=== PATIENT | male | born 1965 | race Caucasian/White ===

== ENCOUNTER 2021-08-09 11:01 | Inpatient (IN) | payer OTHER ==
[2021-08-09 11:55] VITALS: BMI 19.4
[2021-08-09] MEDS ORDERED: ONDANSETRON *ODT* 4 MG TABLET SL PRN (12:51)
[2021-08-09] MEDS ORDERED: BISMUTH SUBSALICYLATE 262 MG/15 ML BTL PO PRN (12:51)
[2021-08-09] MEDS ORDERED: NICOTINE 10 MG CARTRIDGE (INHALER) IH PRN (12:51)
[2021-08-09] MEDS ORDERED: MAGNESIUM HYDROX 2400MG/30ML ORAL SUSPENSION 30 ML CUP PO PRN (12:51)
[2021-08-09] MEDS ORDERED: MAG HYDROX/AL HYDROX/SIMETH 30 ML UNIT-DOSE CUP PO PRN (12:51)
[2021-08-09] MEDS ORDERED: MENTHOL/PHENOL 1 EACH UD MM PRN (12:51)
[2021-08-09] MEDS ORDERED: ACETAMINOPHEN 325 MG TABLET (FP) PO PRN ×2 (12:51)
[2021-08-09] MEDS ORDERED: MAGNESIUM CITRATE 300 ML BOTTLE PO PRN (12:51)
[2021-08-09] MEDS ORDERED: ALBUTEROL SO4 HFA INHALER IH PRN (13:01)
[2021-08-09] MEDS: NICOTINE 14 MG/24 HOURS TOPICAL PATCH TD SCH (15:31)
[2021-08-09] MEDS: PRENATAL VITAMINS W/ FOLIC ACID TABLET (FP) PO SCH (15:31)
[2021-08-09] MEDS: hydrOXYzine PAMOATE 25 MG CAPSULE (FP) PO SCH ×3 (15:31→23:41)
[2021-08-09 15:43] LABS: HEMOGLOBIN 13.7 GM/dL (11.7-16.9); MCHC 33.5 g/dl (32.0-35.9); RBC 4.37 M/mm3 (4.00-5.60)
[2021-08-09 15:45] LABS: MCH 31.4 pg (25.7-33.7); MEAN CELL VOLUME 93.9 fl (80-96); MEAN PLT VOLUME 7.1 fl (7.5-11.1); PLATELET COUNT 275 10^3/uL (134-434); RDW 14.1 % (11.9-15.9)
[2021-08-09 17:41] LABS: ALBUMIN 3.7 g/dl (3.4-5.0); BILIRUBIN,TOTAL 0.2 mg/dL (0.2-1); BLOOD UREA NITROGEN 14.3 mg/dL (7-18); CALCIUM 8.9 mg/dL (8.5-10.1); CREATININE 0.9 mg/dL (0.55-1.3); TOT PROT 7.1 g/dl (6.4-8.2)
[2021-08-09] MEDS: IBUPROFEN 400 MG TABLET (FP) PO PRN (18:14)
[2021-08-09] MEDS: MELATONIN 5 MG TABLETS PO SCH (23:39)
[2021-08-09] MEDS: QUEtiapine FUMARATE 50 MG TABLET PO SCH (23:41)
[2021-08-09] MEDS: THIAMINE HCL 100 MG TABLET (FP) PO SCH (23:41)
[2021-08-10] MEDS: hydrOXYzine PAMOATE 25 MG CAPSULE (FP) PO SCH ×5 (06:30→22:15)
[2021-08-10] MEDS ORDERED: methaDONE HCL 10 MG TABLET PO SCH (09:00)
[2021-08-10] MEDS ORDERED: methaDONE HCL 40 MG DISPERSABLE TABLET ONE (09:34)
[2021-08-10] MEDS ORDERED: methaDONE HCL 10 MG TABLET ONE (09:34)
[2021-08-10] MEDS: PANTOPRAZOLE 20 MG TABLET PO SCH (09:46)
[2021-08-10] MEDS: NICOTINE 14 MG/24 HOURS TOPICAL PATCH TD SCH (09:46)
[2021-08-10] MEDS: PRENATAL VITAMINS W/ FOLIC ACID TABLET (FP) PO SCH (09:46)
[2021-08-10] MEDS: IBUPROFEN 400 MG TABLET (FP) PO PRN ×2 (09:51→18:02)
[2021-08-10] MEDS: diazePAM 5 MG TABLET PO SCH ×3 (10:31→22:15)
[2021-08-10] MEDS: QUEtiapine FUMARATE 50 MG TABLET PO SCH (22:15)
[2021-08-10] MEDS: THIAMINE HCL 100 MG TABLET (FP) PO SCH (22:15)
[2021-08-10] MEDS: MELATONIN 5 MG TABLETS PO SCH (22:16)
[2021-08-11] MEDS ORDERED: methaDONE HCL 40 MG DISPERSABLE TABLET ONE (04:10)
[2021-08-11] MEDS ORDERED: methaDONE HCL 10 MG TABLET ONE (04:10)
[2021-08-11] MEDS: diazePAM 5 MG TABLET PO SCH ×4 (05:06→22:27)
[2021-08-11] MEDS: hydrOXYzine PAMOATE 25 MG CAPSULE (FP) PO SCH ×5 (05:06→22:26)
[2021-08-11] MEDS: NICOTINE 14 MG/24 HOURS TOPICAL PATCH TD SCH (10:16)
[2021-08-11] MEDS: PANTOPRAZOLE 20 MG TABLET PO SCH (10:16)
[2021-08-11] MEDS: PRENATAL VITAMINS W/ FOLIC ACID TABLET (FP) PO SCH (10:16)
[2021-08-11] MEDS: IBUPROFEN 400 MG TABLET (FP) PO PRN ×2 (10:19→17:46)
[2021-08-11 11:05] LABS: HEMATOCRIT 42.8 % (35.4-49); HEMOGLOBIN 14.2 GM/dL (11.7-16.9); MCH 30.9 pg (25.7-33.7); MCHC 33.1 g/dl (32.0-35.9); MEAN CELL VOLUME 93.4 fl (80-96); MEAN PLT VOLUME 7.4 fl (7.5-11.1); PLATELET COUNT 291 10^3/uL (134-434); RBC 4.58 M/mm3 (4.00-5.60); RDW 14.1 % (11.9-15.9); WHITE BLOOD COUNT 9.8 K/mm3 (4.0-10.0)
[2021-08-11] MEDS: QUEtiapine FUMARATE 50 MG TABLET PO SCH (22:26)
[2021-08-11] MEDS: THIAMINE HCL 100 MG TABLET (FP) PO SCH (22:26)
[2021-08-11] MEDS: MELATONIN 5 MG TABLETS PO SCH (22:26)
[2021-08-12] MEDS ORDERED: methaDONE HCL 10 MG TABLET ONE (04:09)
[2021-08-12] MEDS ORDERED: methaDONE HCL 40 MG DISPERSABLE TABLET ONE (04:09)
[2021-08-12] MEDS: diazePAM 5 MG TABLET PO SCH ×3 (06:13→22:20)
[2021-08-12] MEDS: hydrOXYzine PAMOATE 25 MG CAPSULE (FP) PO SCH ×5 (06:13→22:20)
[2021-08-12] MEDS: METHOCARBAMOL 500 MG TABLET PO PRN (06:14)
[2021-08-12] MEDS: NICOTINE 14 MG/24 HOURS TOPICAL PATCH TD SCH (10:08)
[2021-08-12] MEDS: diazePAM 5 MG TABLET PO PRN ×2 (10:09→18:38)
[2021-08-12] MEDS: PANTOPRAZOLE 20 MG TABLET PO SCH (10:09)
[2021-08-12] MEDS: PRENATAL VITAMINS W/ FOLIC ACID TABLET (FP) PO SCH (10:09)
[2021-08-12] MEDS: IBUPROFEN 400 MG TABLET (FP) PO PRN ×2 (10:12→18:37)
[2021-08-12] MEDS: MELATONIN 5 MG TABLETS PO SCH (22:20)
[2021-08-12] MEDS: QUEtiapine FUMARATE 50 MG TABLET PO SCH (22:20)
[2021-08-12] MEDS: THIAMINE HCL 100 MG TABLET (FP) PO SCH (22:20)
[2021-08-13] MEDS ORDERED: methaDONE HCL 10 MG TABLET ONE (04:06)
[2021-08-13] MEDS ORDERED: methaDONE HCL 40 MG DISPERSABLE TABLET ONE (04:07)
[2021-08-13] MEDS: IBUPROFEN 400 MG TABLET (FP) PO PRN ×2 (06:19→18:02)
[2021-08-13] MEDS: diazePAM 5 MG TABLET PO SCH ×2 (06:19→18:05)
[2021-08-13] MEDS: hydrOXYzine PAMOATE 25 MG CAPSULE (FP) PO SCH ×5 (06:24→22:08)
[2021-08-13] MEDS: PANTOPRAZOLE 20 MG TABLET PO SCH (11:26)
[2021-08-13] MEDS: PRENATAL VITAMINS W/ FOLIC ACID TABLET (FP) PO SCH (11:26)
[2021-08-13] MEDS: NICOTINE 14 MG/24 HOURS TOPICAL PATCH TD SCH (11:26)
[2021-08-13] MEDS: QUEtiapine FUMARATE 50 MG TABLET PO SCH (22:08)
[2021-08-13] MEDS: THIAMINE HCL 100 MG TABLET (FP) PO SCH (22:08)
[2021-08-13] MEDS: MELATONIN 5 MG TABLETS PO SCH (22:10)
[2021-08-14] MEDS ORDERED: methaDONE HCL 10 MG TABLET ONE (04:17)
[2021-08-14] MEDS ORDERED: methaDONE HCL 40 MG DISPERSABLE TABLET ONE (04:18)
[2021-08-14] MEDS: METHOCARBAMOL 500 MG TABLET PO PRN (05:13)
[2021-08-14] MEDS: hydrOXYzine PAMOATE 25 MG CAPSULE (FP) PO SCH ×2 (05:13→11:27)
[2021-08-14] MEDS ORDERED: diazePAM 5 MG TABLET PO ONE (06:00)
[2021-08-14] MEDS: NICOTINE 14 MG/24 HOURS TOPICAL PATCH TD SCH (11:27)
[2021-08-14] MEDS: PANTOPRAZOLE 20 MG TABLET PO SCH (11:27)
[2021-08-14] MEDS: PRENATAL VITAMINS W/ FOLIC ACID TABLET (FP) PO SCH (11:27)
[2021-08-14 12:40] VITALS: BP 127/78; PULSE 89; TEMP 96.9
== END 2021-08-14 14:05 | disposition other institution (70) | DRG 773 ==
LOC: YASAS 11:01 → UNDOADMIN 13:34 → Y3N 13:34
PROVIDERS: ADMIT Allergy & Immunology; ATTEND Allergy & Immunology
PROC: HZ2ZZZZ Detoxification Services for Substance Abuse Treatment (ICD-10-PCS; principal; 2021-08-09)
DX: F10.230 Alcohol dependence with withdrawal, uncomplicated (principal); F11.20 Opioid dependence, uncomplicated; F14.20 Cocaine dependence, uncomplicated; F12.20 Cannabis dependence, uncomplicated; F17.210 Nicotine dependence, cigarettes, uncomplicated; F25.9 Schizoaffective disorder, unspecified; F19.24 Other psychoactive substance dependence with psychoactive substance-induced mood disorder; F32.A Depression, unspecified; F39 Unspecified mood [affective] disorder; J45.909 Unspecified asthma, uncomplicated; K21.9 Gastro-esophageal reflux disease without esophagitis; G47.00 Insomnia, unspecified; R76.8 Other specified abnormal immunological findings in serum; Z91.14 Patient's other noncompliance with medication regimen; Z86.19 Personal history of other infectious and parasitic diseases; Z56.0 Unemployment, unspecified
CPT/HCPCS: 36415; 71046-TC-FY; 80053; 85027; 86593; 86780; 93005; 93010; C9803; U0003; U0005

== ENCOUNTER 2021-08-14 14:26 | Inpatient (IN) | payer OTHER ==
[2021-08-14] MEDS ORDERED: MAG HYDROX/AL HYDROX/SIMETH 30 ML UNIT-DOSE CUP PO PRN (15:15)
[2021-08-14] MEDS ORDERED: MENTHOL/PHENOL 1 EACH UD MM PRN (15:15)
[2021-08-14] MEDS ORDERED: guaiFENesin 200 MG/10 ML 10 ML UNIT-DOSE CUPS PO PRN (15:15)
[2021-08-14] MEDS ORDERED: LOPERAMIDE HCL 2 MG CAPSULE PO PRN (15:15)
[2021-08-14] MEDS ORDERED: MAGNESIUM CITRATE 300 ML BOTTLE PO PRN (15:15)
[2021-08-14] MEDS ORDERED: ACETAMINOPHEN 325 MG TABLET (FP) PO PRN (15:15)
[2021-08-14] MEDS ORDERED: MAGNESIUM HYDROX 2400MG/30ML ORAL SUSPENSION 30 ML CUP PO PRN (15:15)
[2021-08-14] MEDS: THIAMINE HCL 100 MG TABLET (FP) PO SCH (21:51)
[2021-08-14] MEDS: MELATONIN 5 MG TABLETS PO SCH (21:52)
[2021-08-14] MEDS ORDERED: QUEtiapine FUMARATE 50 MG TABLET PO SCH (22:00)
[2021-08-15] MEDS ORDERED: methaDONE HCL 40 MG DISPERSABLE TABLET PO SCH (06:00)
[2021-08-15] MEDS ORDERED: methaDONE HCL 10 MG TABLET ONE (06:26)
[2021-08-15] MEDS ORDERED: methaDONE HCL 40 MG DISPERSABLE TABLET ONE (06:26)
[2021-08-15] MEDS: PRENATAL VITAMINS W/ FOLIC ACID TABLET (FP) PO SCH (10:09)
[2021-08-15] MEDS: IBUPROFEN 400 MG TABLET (FP) PO PRN (10:11)
[2021-08-15] MEDS: MELATONIN 5 MG TABLETS PO SCH (21:20)
[2021-08-15] MEDS: THIAMINE HCL 100 MG TABLET (FP) PO SCH (21:20)
[2021-08-16] MEDS ORDERED: methaDONE HCL 40 MG DISPERSABLE TABLET ONE (02:48)
[2021-08-16] MEDS ORDERED: methaDONE HCL 10 MG TABLET ONE (02:48)
[2021-08-16] MEDS: PRENATAL VITAMINS W/ FOLIC ACID TABLET (FP) PO SCH (10:27)
[2021-08-16] MEDS: IBUPROFEN 400 MG TABLET (FP) PO PRN (14:51)
[2021-08-16] MEDS: QUEtiapine FUMARATE 50 MG TABLET PO SCH (21:15)
[2021-08-16] MEDS: THIAMINE HCL 100 MG TABLET (FP) PO SCH (21:15)
[2021-08-16] MEDS: MELATONIN 5 MG TABLETS PO SCH (21:16)
[2021-08-17] MEDS ORDERED: methaDONE HCL 10 MG TABLET ONE (02:56)
[2021-08-17] MEDS ORDERED: methaDONE HCL 40 MG DISPERSABLE TABLET ONE (02:57)
[2021-08-17] MEDS: PRENATAL VITAMINS W/ FOLIC ACID TABLET (FP) PO SCH (09:41)
[2021-08-17] MEDS: PANTOPRAZOLE 20 MG TABLET PO SCH (09:41)
[2021-08-17] MEDS: IBUPROFEN 400 MG TABLET (FP) PO PRN ×2 (09:42→21:50)
[2021-08-17] MEDS: MELATONIN 5 MG TABLETS PO SCH (21:48)
[2021-08-17] MEDS: THIAMINE HCL 100 MG TABLET (FP) PO SCH (21:48)
[2021-08-17] MEDS: QUEtiapine FUMARATE 50 MG TABLET PO SCH (21:48)
[2021-08-18] MEDS ORDERED: methaDONE HCL 10 MG TABLET ONE (02:42)
[2021-08-18] MEDS ORDERED: methaDONE HCL 40 MG DISPERSABLE TABLET ONE (02:43)
[2021-08-18] MEDS: PANTOPRAZOLE 20 MG TABLET PO SCH (09:39)
[2021-08-18] MEDS: PRENATAL VITAMINS W/ FOLIC ACID TABLET (FP) PO SCH (09:39)
[2021-08-18] MEDS: IBUPROFEN 400 MG TABLET (FP) PO PRN (09:39)
[2021-08-18] MEDS: METHYL SALICYLATE/MENTHOL OINT 30 GM TUBE TP SCH ×2 (11:00→21:21)
[2021-08-18] MEDS: QUEtiapine FUMARATE 50 MG TABLET PO SCH (21:21)
[2021-08-18] MEDS: THIAMINE HCL 100 MG TABLET (FP) PO SCH (21:21)
[2021-08-18] MEDS: MELATONIN 5 MG TABLETS PO SCH (21:21)
[2021-08-19] MEDS ORDERED: methaDONE HCL 10 MG TABLET ONE (03:38)
[2021-08-19] MEDS ORDERED: methaDONE HCL 40 MG DISPERSABLE TABLET ONE (03:38)
[2021-08-19] MEDS: METHYL SALICYLATE/MENTHOL OINT 30 GM TUBE TP SCH ×2 (10:37→21:25)
[2021-08-19] MEDS: IBUPROFEN 400 MG TABLET (FP) PO PRN (10:38)
[2021-08-19] MEDS: PANTOPRAZOLE 20 MG TABLET PO SCH (10:39)
[2021-08-19] MEDS: PRENATAL VITAMINS W/ FOLIC ACID TABLET (FP) PO SCH (10:39)
[2021-08-19] MEDS: QUEtiapine FUMARATE 50 MG TABLET PO SCH (21:25)
[2021-08-19] MEDS: MELATONIN 5 MG TABLETS PO SCH (21:25)
[2021-08-19] MEDS: THIAMINE HCL 100 MG TABLET (FP) PO SCH (21:25)
[2021-08-20] MEDS ORDERED: methaDONE HCL 10 MG TABLET ONE (04:02)
[2021-08-20] MEDS ORDERED: methaDONE HCL 40 MG DISPERSABLE TABLET ONE (04:03)
[2021-08-20] MEDS: PANTOPRAZOLE 20 MG TABLET PO SCH (09:36)
[2021-08-20] MEDS: IBUPROFEN 400 MG TABLET (FP) PO PRN ×2 (09:36→21:15)
[2021-08-20] MEDS: PRENATAL VITAMINS W/ FOLIC ACID TABLET (FP) PO SCH (09:36)
[2021-08-20] MEDS: METHYL SALICYLATE/MENTHOL OINT 30 GM TUBE TP SCH ×2 (09:38→21:46)
[2021-08-20] MEDS: QUEtiapine FUMARATE 50 MG TABLET PO SCH (21:13)
[2021-08-20] MEDS: MELATONIN 5 MG TABLETS PO SCH (21:13)
[2021-08-20] MEDS: THIAMINE HCL 100 MG TABLET (FP) PO SCH (21:13)
[2021-08-21] MEDS ORDERED: methaDONE HCL 40 MG DISPERSABLE TABLET ONE (04:00)
[2021-08-21] MEDS ORDERED: methaDONE HCL 10 MG TABLET ONE (04:00)
[2021-08-21] MEDS ORDERED: PT OWN MED DRAWER 7, Y5N ONE (08:38)
[2021-08-21] MEDS: PRENATAL VITAMINS W/ FOLIC ACID TABLET (FP) PO SCH (09:41)
[2021-08-21] MEDS: METHYL SALICYLATE/MENTHOL OINT 30 GM TUBE TP SCH ×2 (09:41→21:32)
[2021-08-21] MEDS: PANTOPRAZOLE 20 MG TABLET PO SCH (12:25)
[2021-08-21] MEDS: THIAMINE HCL 100 MG TABLET (FP) PO SCH (21:32)
[2021-08-21] MEDS: MELATONIN 5 MG TABLETS PO SCH (21:32)
[2021-08-21] MEDS: QUEtiapine FUMARATE 50 MG TABLET PO SCH (21:32)
[2021-08-22] MEDS ORDERED: methaDONE HCL 10 MG TABLET ONE (04:09)
[2021-08-22] MEDS ORDERED: methaDONE HCL 40 MG DISPERSABLE TABLET ONE (04:09)
[2021-08-22] MEDS: IBUPROFEN 400 MG TABLET (FP) PO PRN ×2 (10:06→21:08)
[2021-08-22] MEDS: METHYL SALICYLATE/MENTHOL OINT 30 GM TUBE TP SCH ×2 (10:06→21:42)
[2021-08-22] MEDS: PANTOPRAZOLE 20 MG TABLET PO SCH (10:06)
[2021-08-22] MEDS: PRENATAL VITAMINS W/ FOLIC ACID TABLET (FP) PO SCH (10:06)
[2021-08-22] MEDS: THIAMINE HCL 100 MG TABLET (FP) PO SCH (21:07)
[2021-08-22] MEDS: MELATONIN 5 MG TABLETS PO SCH (21:08)
[2021-08-22] MEDS: QUEtiapine FUMARATE 50 MG TABLET PO SCH (21:08)
[2021-08-23] MEDS ORDERED: methaDONE HCL 40 MG DISPERSABLE TABLET ONE (02:17)
[2021-08-23] MEDS ORDERED: methaDONE HCL 10 MG TABLET ONE (02:17)
[2021-08-23] MEDS: ALBUTEROL SO4 HFA INHALER IH PRN (06:37)
[2021-08-23] MEDS ORDERED: PT OWN MED DRAWER 7, Y5N ONE (06:39)
[2021-08-23] MEDS: PRENATAL VITAMINS W/ FOLIC ACID TABLET (FP) PO SCH (09:35)
[2021-08-23] MEDS: METHYL SALICYLATE/MENTHOL OINT 30 GM TUBE TP SCH ×2 (09:35→21:15)
[2021-08-23] MEDS: PANTOPRAZOLE 20 MG TABLET PO SCH (09:35)
[2021-08-23] MEDS: IBUPROFEN 400 MG TABLET (FP) PO PRN (09:35)
[2021-08-23] MEDS: THIAMINE HCL 100 MG TABLET (FP) PO SCH (21:15)
[2021-08-23] MEDS: QUEtiapine FUMARATE 50 MG TABLET PO SCH (21:15)
[2021-08-23] MEDS: MELATONIN 5 MG TABLETS PO SCH (23:45)
[2021-08-24] MEDS ORDERED: methaDONE HCL 10 MG TABLET ONE (02:59)
[2021-08-24] MEDS ORDERED: methaDONE HCL 40 MG DISPERSABLE TABLET ONE (02:59)
[2021-08-24] MEDS: IBUPROFEN 400 MG TABLET (FP) PO PRN (09:46)
[2021-08-24] MEDS: PANTOPRAZOLE 20 MG TABLET PO SCH (09:46)
[2021-08-24] MEDS: METHYL SALICYLATE/MENTHOL OINT 30 GM TUBE TP SCH ×2 (09:46→21:49)
[2021-08-24] MEDS: PRENATAL VITAMINS W/ FOLIC ACID TABLET (FP) PO SCH (09:46)
[2021-08-24] MEDS ORDERED: COLLOIDAL OATMEAL 1 BAR EACH TP PRN (14:30)
[2021-08-24] MEDS: METHOCARBAMOL 500 MG TABLET PO SCH ×2 (15:01→21:11)
[2021-08-24] MEDS: MELATONIN 5 MG TABLETS PO SCH (21:11)
[2021-08-24] MEDS: THIAMINE HCL 100 MG TABLET (FP) PO SCH (21:11)
[2021-08-24] MEDS: QUEtiapine FUMARATE 50 MG TABLET PO SCH (21:11)
[2021-08-25] MEDS ORDERED: methaDONE HCL 40 MG DISPERSABLE TABLET ONE (04:44)
[2021-08-25] MEDS ORDERED: methaDONE HCL 10 MG TABLET ONE (04:44)
[2021-08-25] MEDS: METHOCARBAMOL 500 MG TABLET PO SCH ×3 (06:15→21:24)
[2021-08-25] MEDS: PRENATAL VITAMINS W/ FOLIC ACID TABLET (FP) PO SCH (09:42)
[2021-08-25] MEDS: PANTOPRAZOLE 20 MG TABLET PO SCH (09:42)
[2021-08-25] MEDS: METHYL SALICYLATE/MENTHOL OINT 30 GM TUBE TP SCH ×2 (12:08→21:26)
[2021-08-25] MEDS ORDERED: QUEtiapine FUMARATE 50 MG TABLET PO SCH (16:12)
[2021-08-25] MEDS ORDERED: PT OWN MED DRAWER 7, Y5N ONE (20:31)
[2021-08-25] MEDS: THIAMINE HCL 100 MG TABLET (FP) PO SCH (21:24)
[2021-08-25] MEDS: QUEtiapine FUMARATE 25 MG TABLET PO SCH (21:24)
[2021-08-25] MEDS: MELATONIN 5 MG TABLETS PO SCH (21:25)
[2021-08-26] MEDS ORDERED: PT OWN MED DRAWER 7, Y5N ONE ×3 (00:20→20:23)
[2021-08-26] MEDS ORDERED: methaDONE HCL 10 MG TABLET ONE (04:04)
[2021-08-26] MEDS ORDERED: methaDONE HCL 40 MG DISPERSABLE TABLET ONE (04:04)
[2021-08-26] MEDS: METHOCARBAMOL 500 MG TABLET PO SCH ×3 (06:13→21:07)
[2021-08-26] MEDS: METHYL SALICYLATE/MENTHOL OINT 30 GM TUBE TP SCH ×2 (09:51→21:08)
[2021-08-26] MEDS: PRENATAL VITAMINS W/ FOLIC ACID TABLET (FP) PO SCH (09:51)
[2021-08-26] MEDS: PANTOPRAZOLE 20 MG TABLET PO SCH (09:51)
[2021-08-26] MEDS: THIAMINE HCL 100 MG TABLET (FP) PO SCH (21:07)
[2021-08-26] MEDS: QUEtiapine FUMARATE 25 MG TABLET PO SCH (21:07)
[2021-08-26] MEDS: MELATONIN 5 MG TABLETS PO SCH (21:07)
[2021-08-27] MEDS ORDERED: methaDONE HCL 10 MG TABLET ONE (03:03)
[2021-08-27] MEDS ORDERED: methaDONE HCL 40 MG DISPERSABLE TABLET ONE (03:04)
[2021-08-27] MEDS: METHOCARBAMOL 500 MG TABLET PO SCH ×3 (06:22→21:03)
[2021-08-27] MEDS: PRENATAL VITAMINS W/ FOLIC ACID TABLET (FP) PO SCH (09:23)
[2021-08-27] MEDS: PANTOPRAZOLE 20 MG TABLET PO SCH (09:23)
[2021-08-27] MEDS: METHYL SALICYLATE/MENTHOL OINT 30 GM TUBE TP SCH ×2 (09:24→21:03)
[2021-08-27] MEDS: IBUPROFEN 400 MG TABLET (FP) PO PRN (18:28)
[2021-08-27] MEDS: THIAMINE HCL 100 MG TABLET (FP) PO SCH (21:02)
[2021-08-27] MEDS: QUEtiapine FUMARATE 25 MG TABLET PO SCH (21:02)
[2021-08-27] MEDS: MELATONIN 5 MG TABLETS PO SCH (21:04)
[2021-08-28] MEDS ORDERED: methaDONE HCL 40 MG DISPERSABLE TABLET ONE (04:49)
[2021-08-28] MEDS ORDERED: methaDONE HCL 10 MG TABLET ONE (04:49)
[2021-08-28] MEDS: METHOCARBAMOL 500 MG TABLET PO SCH ×3 (06:59→21:47)
[2021-08-28] MEDS: PANTOPRAZOLE 20 MG TABLET PO SCH (09:55)
[2021-08-28] MEDS: PRENATAL VITAMINS W/ FOLIC ACID TABLET (FP) PO SCH (09:55)
[2021-08-28] MEDS: IBUPROFEN 400 MG TABLET (FP) PO PRN (09:56)
[2021-08-28] MEDS: METHYL SALICYLATE/MENTHOL OINT 30 GM TUBE TP SCH ×2 (09:56→21:49)
[2021-08-28] MEDS ORDERED: PT OWN MED DRAWER 7, Y5N ONE (20:14)
[2021-08-28] MEDS: THIAMINE HCL 100 MG TABLET (FP) PO SCH (21:47)
[2021-08-28] MEDS: QUEtiapine FUMARATE 25 MG TABLET PO SCH (21:47)
[2021-08-28] MEDS: MELATONIN 5 MG TABLETS PO SCH (21:48)
[2021-08-29] MEDS ORDERED: methaDONE HCL 10 MG TABLET ONE (06:03)
[2021-08-29] MEDS ORDERED: methaDONE HCL 40 MG DISPERSABLE TABLET ONE (06:03)
[2021-08-29] MEDS: METHOCARBAMOL 500 MG TABLET PO SCH ×3 (06:21→21:39)
[2021-08-29] MEDS: METHYL SALICYLATE/MENTHOL OINT 30 GM TUBE TP SCH ×2 (09:19→21:39)
[2021-08-29] MEDS: PANTOPRAZOLE 20 MG TABLET PO SCH (09:19)
[2021-08-29] MEDS: IBUPROFEN 400 MG TABLET (FP) PO PRN (09:19)
[2021-08-29] MEDS: PRENATAL VITAMINS W/ FOLIC ACID TABLET (FP) PO SCH (09:19)
[2021-08-29] MEDS ORDERED: PT OWN MED DRAWER 7, Y5N ONE ×2 (19:21→21:39)
[2021-08-29] MEDS: THIAMINE HCL 100 MG TABLET (FP) PO SCH (21:39)
[2021-08-29] MEDS: QUEtiapine FUMARATE 25 MG TABLET PO SCH (21:39)
[2021-08-29] MEDS: MELATONIN 5 MG TABLETS PO SCH (21:39)
[2021-08-30] MEDS ORDERED: methaDONE HCL 10 MG TABLET ONE (03:09)
[2021-08-30] MEDS ORDERED: methaDONE HCL 40 MG DISPERSABLE TABLET ONE (03:09)
[2021-08-30] MEDS: METHOCARBAMOL 500 MG TABLET PO SCH ×3 (06:18→21:07)
[2021-08-30] MEDS: METHYL SALICYLATE/MENTHOL OINT 30 GM TUBE TP SCH ×2 (09:45→21:08)
[2021-08-30] MEDS: PRENATAL VITAMINS W/ FOLIC ACID TABLET (FP) PO SCH (09:45)
[2021-08-30] MEDS: PANTOPRAZOLE 20 MG TABLET PO SCH (09:45)
[2021-08-30] MEDS ORDERED: PT OWN MED DRAWER 7, Y5N ONE ×3 (10:04→23:11)
[2021-08-30] MEDS: QUEtiapine FUMARATE 25 MG TABLET PO SCH (21:07)
[2021-08-30] MEDS: MELATONIN 5 MG TABLETS PO SCH (21:07)
[2021-08-30] MEDS: THIAMINE HCL 100 MG TABLET (FP) PO SCH (21:07)
[2021-08-31] MEDS ORDERED: methaDONE HCL 10 MG TABLET ONE (05:28)
[2021-08-31] MEDS ORDERED: methaDONE HCL 40 MG DISPERSABLE TABLET ONE (05:29)
[2021-08-31] MEDS: METHOCARBAMOL 500 MG TABLET PO SCH ×3 (06:24→21:04)
[2021-08-31] MEDS: METHYL SALICYLATE/MENTHOL OINT 30 GM TUBE TP SCH ×2 (09:57→21:04)
[2021-08-31] MEDS: PRENATAL VITAMINS W/ FOLIC ACID TABLET (FP) PO SCH (09:57)
[2021-08-31] MEDS: IBUPROFEN 400 MG TABLET (FP) PO PRN (09:58)
[2021-08-31] MEDS: PANTOPRAZOLE 20 MG TABLET PO SCH (09:58)
[2021-08-31] MEDS ORDERED: PT OWN MED DRAWER 7, Y5N ONE (20:43)
[2021-08-31] MEDS: THIAMINE HCL 100 MG TABLET (FP) PO SCH (21:04)
[2021-08-31] MEDS: MELATONIN 5 MG TABLETS PO SCH (21:04)
[2021-08-31] MEDS: QUEtiapine FUMARATE 25 MG TABLET PO SCH (21:04)
[2021-09-01] MEDS ORDERED: methaDONE HCL 40 MG DISPERSABLE TABLET ONE (05:26)
[2021-09-01] MEDS ORDERED: methaDONE HCL 10 MG TABLET ONE (05:26)
[2021-09-01] MEDS: METHOCARBAMOL 500 MG TABLET PO SCH ×3 (06:13→21:16)
[2021-09-01] MEDS: PRENATAL VITAMINS W/ FOLIC ACID TABLET (FP) PO SCH (09:13)
[2021-09-01] MEDS: PANTOPRAZOLE 20 MG TABLET PO SCH (09:13)
[2021-09-01] MEDS: METHYL SALICYLATE/MENTHOL OINT 30 GM TUBE TP SCH ×2 (09:13→21:17)
[2021-09-01] MEDS: IBUPROFEN 400 MG TABLET (FP) PO PRN (19:47)
[2021-09-01] MEDS ORDERED: PT OWN MED DRAWER 7, Y5N ONE (20:12)
[2021-09-01] MEDS: QUEtiapine FUMARATE 25 MG TABLET PO SCH (21:16)
[2021-09-01] MEDS: THIAMINE HCL 100 MG TABLET (FP) PO SCH (21:16)
[2021-09-01] MEDS: MELATONIN 5 MG TABLETS PO SCH (21:17)
[2021-09-02] MEDS ORDERED: methaDONE HCL 10 MG TABLET ONE (04:26)
[2021-09-02] MEDS ORDERED: methaDONE HCL 40 MG DISPERSABLE TABLET ONE (04:27)
[2021-09-02] MEDS: METHOCARBAMOL 500 MG TABLET PO SCH ×3 (06:32→21:13)
[2021-09-02] MEDS: PRENATAL VITAMINS W/ FOLIC ACID TABLET (FP) PO SCH (09:53)
[2021-09-02] MEDS: METHYL SALICYLATE/MENTHOL OINT 30 GM TUBE TP SCH ×2 (09:53→21:15)
[2021-09-02] MEDS: PANTOPRAZOLE 20 MG TABLET PO SCH (09:53)
[2021-09-02] MEDS ORDERED: PT OWN MED DRAWER 7, Y5N ONE ×2 (19:59→21:15)
[2021-09-02] MEDS: MELATONIN 5 MG TABLETS PO SCH (21:13)
[2021-09-02] MEDS: QUEtiapine FUMARATE 25 MG TABLET PO SCH (21:13)
[2021-09-02] MEDS: THIAMINE HCL 100 MG TABLET (FP) PO SCH (21:13)
[2021-09-03] MEDS ORDERED: methaDONE HCL 10 MG TABLET ONE (06:21)
[2021-09-03] MEDS ORDERED: methaDONE HCL 40 MG DISPERSABLE TABLET ONE (06:22)
[2021-09-03] MEDS: METHOCARBAMOL 500 MG TABLET PO SCH ×3 (06:23→21:02)
[2021-09-03] MEDS: PANTOPRAZOLE 20 MG TABLET PO SCH (10:00)
[2021-09-03] MEDS: METHYL SALICYLATE/MENTHOL OINT 30 GM TUBE TP SCH ×2 (10:00→21:01)
[2021-09-03] MEDS: PRENATAL VITAMINS W/ FOLIC ACID TABLET (FP) PO SCH (10:00)
[2021-09-03] MEDS: THIAMINE HCL 100 MG TABLET (FP) PO SCH (21:02)
[2021-09-03] MEDS: QUEtiapine FUMARATE 25 MG TABLET PO SCH (21:02)
[2021-09-03] MEDS: MELATONIN 5 MG TABLETS PO SCH (21:02)
[2021-09-04] MEDS ORDERED: methaDONE HCL 10 MG TABLET ONE (04:30)
[2021-09-04] MEDS ORDERED: methaDONE HCL 40 MG DISPERSABLE TABLET ONE (04:31)
[2021-09-04] MEDS: METHOCARBAMOL 500 MG TABLET PO SCH ×3 (06:31→21:07)
[2021-09-04] MEDS: PRENATAL VITAMINS W/ FOLIC ACID TABLET (FP) PO SCH (09:25)
[2021-09-04] MEDS: METHYL SALICYLATE/MENTHOL OINT 30 GM TUBE TP SCH ×2 (09:25→21:08)
[2021-09-04] MEDS: PANTOPRAZOLE 20 MG TABLET PO SCH (09:25)
[2021-09-04] MEDS: IBUPROFEN 400 MG TABLET (FP) PO PRN (09:26)
[2021-09-04] MEDS: ALBUTEROL SO4 HFA INHALER IH PRN (13:10)
[2021-09-04] MEDS ORDERED: PT OWN MED DRAWER 7, Y5N ONE (20:45)
[2021-09-04] MEDS: MELATONIN 5 MG TABLETS PO SCH (21:07)
[2021-09-04] MEDS: THIAMINE HCL 100 MG TABLET (FP) PO SCH (21:07)
[2021-09-04] MEDS: QUEtiapine FUMARATE 25 MG TABLET PO SCH (21:07)
[2021-09-05] MEDS ORDERED: methaDONE HCL 40 MG DISPERSABLE TABLET ONE (05:24)
[2021-09-05] MEDS ORDERED: methaDONE HCL 10 MG TABLET ONE (05:24)
[2021-09-05] MEDS: METHOCARBAMOL 500 MG TABLET PO SCH ×3 (06:28→21:04)
[2021-09-05] MEDS: PANTOPRAZOLE 20 MG TABLET PO SCH (09:27)
[2021-09-05] MEDS: IBUPROFEN 400 MG TABLET (FP) PO PRN (09:28)
[2021-09-05] MEDS: PRENATAL VITAMINS W/ FOLIC ACID TABLET (FP) PO SCH (09:28)
[2021-09-05] MEDS: METHYL SALICYLATE/MENTHOL OINT 30 GM TUBE TP SCH ×2 (09:29→22:13)
[2021-09-05] MEDS ORDERED: PT OWN MED DRAWER 7, Y5N ONE (19:32)
[2021-09-05] MEDS: QUEtiapine FUMARATE 25 MG TABLET PO SCH (21:04)
[2021-09-05] MEDS: MELATONIN 5 MG TABLETS PO SCH (21:04)
[2021-09-05] MEDS: THIAMINE HCL 100 MG TABLET (FP) PO SCH (21:04)
[2021-09-05] MEDS: ALBUTEROL SO4 HFA INHALER IH PRN (21:05)
[2021-09-06] MEDS ORDERED: methaDONE HCL 10 MG TABLET ONE (03:52)
[2021-09-06] MEDS ORDERED: methaDONE HCL 40 MG DISPERSABLE TABLET ONE (03:52)
[2021-09-06] MEDS: METHOCARBAMOL 500 MG TABLET PO SCH ×3 (06:14→21:06)
[2021-09-06] MEDS: PRENATAL VITAMINS W/ FOLIC ACID TABLET (FP) PO SCH (09:56)
[2021-09-06] MEDS: METHYL SALICYLATE/MENTHOL OINT 30 GM TUBE TP SCH ×2 (09:57→21:07)
[2021-09-06] MEDS: IBUPROFEN 400 MG TABLET (FP) PO PRN ×2 (09:57→16:48)
[2021-09-06] MEDS: PANTOPRAZOLE 20 MG TABLET PO SCH (09:57)
[2021-09-06] MEDS ORDERED: PT OWN MED DRAWER 7, Y5N ONE (20:10)
[2021-09-06] MEDS: QUEtiapine FUMARATE 25 MG TABLET PO SCH (21:06)
[2021-09-06] MEDS: THIAMINE HCL 100 MG TABLET (FP) PO SCH (21:06)
[2021-09-06] MEDS: MELATONIN 5 MG TABLETS PO SCH (21:07)
[2021-09-07] MEDS ORDERED: methaDONE HCL 10 MG TABLET ONE (05:36)
[2021-09-07] MEDS ORDERED: methaDONE HCL 40 MG DISPERSABLE TABLET ONE (05:36)
[2021-09-07] MEDS: METHOCARBAMOL 500 MG TABLET PO SCH ×3 (06:16→21:02)
[2021-09-07] MEDS: IBUPROFEN 400 MG TABLET (FP) PO PRN (09:52)
[2021-09-07] MEDS: PANTOPRAZOLE 20 MG TABLET PO SCH (09:52)
[2021-09-07] MEDS: PRENATAL VITAMINS W/ FOLIC ACID TABLET (FP) PO SCH (09:52)
[2021-09-07] MEDS: METHYL SALICYLATE/MENTHOL OINT 30 GM TUBE TP SCH ×2 (09:52→21:04)
[2021-09-07] MEDS ORDERED: PT OWN MED DRAWER 7, Y5N ONE (20:55)
[2021-09-07] MEDS: QUEtiapine FUMARATE 25 MG TABLET PO SCH (21:02)
[2021-09-07] MEDS: THIAMINE HCL 100 MG TABLET (FP) PO SCH (21:02)
[2021-09-07] MEDS: MELATONIN 5 MG TABLETS PO SCH (21:04)
[2021-09-08] MEDS ORDERED: methaDONE HCL 40 MG DISPERSABLE TABLET ONE (04:12)
[2021-09-08] MEDS ORDERED: methaDONE HCL 10 MG TABLET ONE (04:12)
[2021-09-08] MEDS: METHOCARBAMOL 500 MG TABLET PO SCH ×3 (06:14→21:23)
[2021-09-08] MEDS: PANTOPRAZOLE 20 MG TABLET PO SCH (09:43)
[2021-09-08] MEDS: PRENATAL VITAMINS W/ FOLIC ACID TABLET (FP) PO SCH (09:43)
[2021-09-08] MEDS: METHYL SALICYLATE/MENTHOL OINT 30 GM TUBE TP SCH ×2 (09:44→21:24)
[2021-09-08] MEDS: ALBUTEROL SO4 HFA INHALER IH PRN ×2 (12:31→21:22)
[2021-09-08] MEDS ORDERED: PT OWN MED DRAWER 7, Y5N ONE (19:44)
[2021-09-08] MEDS: THIAMINE HCL 100 MG TABLET (FP) PO SCH (21:23)
[2021-09-08] MEDS: QUEtiapine FUMARATE 25 MG TABLET PO SCH (21:23)
[2021-09-08] MEDS: MELATONIN 5 MG TABLETS PO SCH (21:23)
[2021-09-09] MEDS ORDERED: methaDONE HCL 10 MG TABLET ONE (05:24)
[2021-09-09] MEDS ORDERED: methaDONE HCL 40 MG DISPERSABLE TABLET ONE (05:25)
[2021-09-09] MEDS: METHOCARBAMOL 500 MG TABLET PO SCH ×3 (07:01→21:11)
[2021-09-09] MEDS: METHYL SALICYLATE/MENTHOL OINT 30 GM TUBE TP SCH ×2 (09:56→23:18)
[2021-09-09] MEDS: PRENATAL VITAMINS W/ FOLIC ACID TABLET (FP) PO SCH (09:56)
[2021-09-09] MEDS: PANTOPRAZOLE 20 MG TABLET PO SCH (09:57)
[2021-09-09] MEDS: IBUPROFEN 400 MG TABLET (FP) PO PRN (09:57)
[2021-09-09] MEDS ORDERED: PT OWN MED DRAWER 7, Y5N ONE (20:34)
[2021-09-09] MEDS: THIAMINE HCL 100 MG TABLET (FP) PO SCH (21:11)
[2021-09-09] MEDS: QUEtiapine FUMARATE 25 MG TABLET PO SCH (21:11)
[2021-09-09] MEDS: MELATONIN 5 MG TABLETS PO SCH (23:18)
[2021-09-10] MEDS ORDERED: methaDONE HCL 10 MG TABLET ONE (06:00)
[2021-09-10] MEDS ORDERED: methaDONE HCL 40 MG DISPERSABLE TABLET ONE (06:00)
[2021-09-10] MEDS: METHOCARBAMOL 500 MG TABLET PO SCH ×3 (06:24→21:10)
[2021-09-10] MEDS: PANTOPRAZOLE 20 MG TABLET PO SCH (09:34)
[2021-09-10] MEDS: IBUPROFEN 400 MG TABLET (FP) PO PRN ×2 (09:34→15:44)
[2021-09-10] MEDS: METHYL SALICYLATE/MENTHOL OINT 30 GM TUBE TP SCH ×2 (09:34→21:11)
[2021-09-10] MEDS: PRENATAL VITAMINS W/ FOLIC ACID TABLET (FP) PO SCH (09:34)
[2021-09-10] MEDS: ALBUTEROL SO4 HFA INHALER IH PRN (19:05)
[2021-09-10] MEDS ORDERED: PT OWN MED DRAWER 7, Y5N ONE (20:59)
[2021-09-10] MEDS: QUEtiapine FUMARATE 25 MG TABLET PO SCH (21:10)
[2021-09-10] MEDS: THIAMINE HCL 100 MG TABLET (FP) PO SCH (21:11)
[2021-09-10] MEDS: MELATONIN 5 MG TABLETS PO SCH (21:11)
[2021-09-11] MEDS ORDERED: methaDONE HCL 40 MG DISPERSABLE TABLET ONE (03:32)
[2021-09-11] MEDS ORDERED: methaDONE HCL 10 MG TABLET ONE (03:32)
[2021-09-11] MEDS: METHOCARBAMOL 500 MG TABLET PO SCH ×3 (06:33→21:33)
[2021-09-11] MEDS: PRENATAL VITAMINS W/ FOLIC ACID TABLET (FP) PO SCH (09:14)
[2021-09-11] MEDS: PANTOPRAZOLE 20 MG TABLET PO SCH (09:14)
[2021-09-11] MEDS: METHYL SALICYLATE/MENTHOL OINT 30 GM TUBE TP SCH ×2 (09:14→21:33)
[2021-09-11] MEDS ORDERED: PT OWN MED DRAWER 7, Y5N ONE (19:50)
[2021-09-11] MEDS: MELATONIN 5 MG TABLETS PO SCH (21:33)
[2021-09-11] MEDS: THIAMINE HCL 100 MG TABLET (FP) PO SCH (21:33)
[2021-09-11] MEDS: QUEtiapine FUMARATE 25 MG TABLET PO SCH (21:33)
[2021-09-12] MEDS ORDERED: methaDONE HCL 10 MG TABLET ONE (06:11)
[2021-09-12] MEDS ORDERED: methaDONE HCL 40 MG DISPERSABLE TABLET ONE (06:12)
[2021-09-12] MEDS: METHOCARBAMOL 500 MG TABLET PO SCH ×3 (06:13→21:02)
[2021-09-12 06:41] VITALS: TEMP 96.9
[2021-09-12] MEDS: IBUPROFEN 400 MG TABLET (FP) PO PRN (09:43)
[2021-09-12] MEDS: METHYL SALICYLATE/MENTHOL OINT 30 GM TUBE TP SCH ×2 (09:44→21:00)
[2021-09-12] MEDS: PANTOPRAZOLE 20 MG TABLET PO SCH (09:44)
[2021-09-12] MEDS: PRENATAL VITAMINS W/ FOLIC ACID TABLET (FP) PO SCH (09:44)
[2021-09-12] MEDS: THIAMINE HCL 100 MG TABLET (FP) PO SCH (21:01)
[2021-09-12] MEDS: QUEtiapine FUMARATE 25 MG TABLET PO SCH (21:01)
[2021-09-12] MEDS: MELATONIN 5 MG TABLETS PO SCH (21:48)
[2021-09-13] MEDS ORDERED: methaDONE HCL 40 MG DISPERSABLE TABLET ONE (03:37)
[2021-09-13] MEDS ORDERED: methaDONE HCL 10 MG TABLET ONE (03:37)
[2021-09-13] MEDS: METHOCARBAMOL 500 MG TABLET PO SCH (06:15)
[2021-09-13 06:40] VITALS: BP 105/66; PULSE 95
[2021-09-13] MEDS: METHYL SALICYLATE/MENTHOL OINT 30 GM TUBE TP SCH (12:04)
[2021-09-13] MEDS: PRENATAL VITAMINS W/ FOLIC ACID TABLET (FP) PO SCH (12:04)
[2021-09-13] MEDS: PANTOPRAZOLE 20 MG TABLET PO SCH (12:05)
== END 2021-09-13 09:40 | disposition home or self-care (01) | DRG 772 ==
LOC: YASAS 14:26 → Y3E 14:27
PROVIDERS: ADMIT Allergy & Immunology; ATTEND Allergy & Immunology
PROC: HZ42ZZZ Group Counseling for Substance Abuse Treatment, Cognitive-Behavioral (ICD-10-PCS; principal; 2021-08-14)
DX: F10.20 Alcohol dependence, uncomplicated (principal); F11.20 Opioid dependence, uncomplicated; F14.20 Cocaine dependence, uncomplicated; F12.20 Cannabis dependence, uncomplicated; F17.210 Nicotine dependence, cigarettes, uncomplicated; F19.24 Other psychoactive substance dependence with psychoactive substance-induced mood disorder; F25.9 Schizoaffective disorder, unspecified; J45.909 Unspecified asthma, uncomplicated; E78.5 Hyperlipidemia, unspecified; M62.838 Other muscle spasm; G47.00 Insomnia, unspecified; Z86.19 Personal history of other infectious and parasitic diseases; Z91.51 Personal history of suicidal behavior; Z56.0 Unemployment, unspecified

== ENCOUNTER 2024-11-20 11:08 | Inpatient (IN) | payer OTHER ==
[2024-11-20 11:39] VITALS: BMI 19.1
[2024-11-20] MEDS ORDERED: guaiFENesin 600 MG TABLET.ER (FP) PO PRN (12:06)
[2024-11-20] MEDS ORDERED: DOCUSATE SODIUM 100 MG CAPSULE (FP) PO PRN (12:06)
[2024-11-20] MEDS ORDERED: LOPERAMIDE HCL 2 MG CAPSULE PO PRN (12:06)
[2024-11-20] MEDS ORDERED: BENZOCAINE/MENTHOL (CHLORASEPTIC ) LOZENGE MM PRN (12:06)
[2024-11-20] MEDS ORDERED: NICOTINE POLACRILEX 2 MG LOZENGE BC PRN (12:06)
[2024-11-20] MEDS ORDERED: NALOXONE (NARCAN) HCL 4 MG/0.1 ML SPRAY NS PRN (12:06)
[2024-11-20] MEDS ORDERED: P-EPHED 60MG/TRIPROLIDI 2.5MG TABLET PO PRN (12:06)
[2024-11-20] MEDS ORDERED: NICOTINE POLACRILEX 2 MG GUM BUC PRN (12:06)
[2024-11-20] MEDS ORDERED: BENZONATATE 200 MG CAPSULE PO PRN (12:06)
[2024-11-20] MEDS: ALBUTEROL SO4 HFA INHALER IH PRN (16:00)
[2024-11-20] MEDS: THIAMINE 100 MG TABLET PO SCH (21:06)
[2024-11-20] MEDS: MELATONIN 5 MG TABLETS PO SCH (21:06)
[2024-11-21] MEDS: MAG HYDROX/AL HYDROX/SIMETH 30 ML UNIT-DOSE CUP PO PRN (03:29)
[2024-11-21] MEDS ORDERED: methaDONE HCL 40 MG DISPERSABLE TABLET PO SCH (06:00)
[2024-11-21] MEDS ORDERED: methaDONE HCL 10 MG TABLET PO SCH (06:00)
[2024-11-21] MEDS: PRENATAL VITAMINS W/ FOLIC ACID TABLET (FP) PO SCH (09:51)
[2024-11-21 10:07] LABS: POTASSIUM 4.1 mmol/L (3.5-5.1)
[2024-11-21 10:13] LABS: ALBUMIN 2.8 g/dl (3.4-5.0); BLOOD UREA NITROGEN 19.9 mg/dL (7-18)
[2024-11-21 10:14] LABS: CALCIUM 8.2 mg/dL (8.5-10.1)
[2024-11-21 10:16] LABS: CREATININE 0.7 mg/dL (0.55-1.3)
[2024-11-21 10:17] LABS: HEMATOCRIT 34.6 % (35.4-49); HEMOGLOBIN 11.9 GM/dL (11.7-16.9); MCH 31.6 pg (25.7-33.7); MCHC 34.3 g/dl (32.0-35.9); MEAN CELL VOLUME 92.2 fl (80-96); MEAN PLT VOLUME 7.1 fl (7.5-11.1); PLATELET COUNT 259 10^3/uL (134-434); RBC 3.76 M/mm3 (4.00-5.60); RDW 14.2 % (11.9-15.9); WHITE BLOOD COUNT 8.5 K/mm3 (4.0-10.0)
[2024-11-21 10:18] LABS: BILIRUBIN,TOTAL 0.6 mg/dL (0.2-1); TOT PROT 5.7 g/dl (6.4-8.2)
[2024-11-21 10:35] LABS: URINE APPEARANCE TURBID; URINE BILIRUBIN NEGATIVE (NEGATIVE); URINE COLOR YELLOW; URINE GLUCOSE (UA) TRACE (NEGATIVE); URINE KETONE NEGATIVE (NEGATIVE); URINE LEUK ESTERASE NEGATIVE (NEGATIVE); URINE NITRITE NEGATIVE (NEGATIVE); URINE PROTEIN NEGATIVE (NEGATIVE)
[2024-11-21 14:15] LABS: HIV INTERPRETATION NEGATIVE (NEGATIVE)
[2024-11-21 14:17] LABS: HCV DIAGNOSTIC IN-HOUSE W/RFLX REACTIVE (NONREACTIVE); SYPHILIS W/ RPR CONF REACTIVE (NONREACTIVE)
[2024-11-21 14:47] LABS: HCV DIAGNOSTIC IN-HOUSE W/RFLX REACTIVE (NONREACTIVE)
[2024-11-21] MEDS: QUEtiapine FUMARATE 50 MG TABLET PO SCH (21:15)
[2024-11-23] MEDS: IBUPROFEN 600 MG TABLET (FP) PO PRN (06:04)
[2024-11-24] MEDS: ACETAMINOPHEN 325 MG TABLET (FP) PO PRN (09:27)
[2024-12-03] MEDS: IBUPROFEN 400 MG TABLET (FP) PO PRN (21:05)
[2024-12-04] MEDS: GABAPENTIN 100 MG CAPSULE PO SCH (13:07)
[2024-12-04] MEDS: MAGNESIUM OXIDE 400 MG TABLET (FP) PO SCH (13:23)
[2024-12-04] MEDS: QUEtiapine FUMARATE 50 MG TABLET PO SCH (21:02)
[2024-12-04] MEDS: BACLOFEN 10 MG TABLET (FP) PO SCH (21:02)
[2024-12-04] MEDS: POLYETHYLENE GLYCOL (HEALTHYLAX) 3350 17 GM PACKET PO PRN (21:04)
[2024-12-05] MEDS: FAMOTIDINE 20 MG TABLET PO SCH (09:31)
[2024-12-14 06:37] VITALS: RESP 16
[2024-12-14] MEDS: LIDOCAINE 5% TOPICAL PATCH TP SCH (12:10)
[2024-12-14] MEDS: MAGNESIUM HYDROX 2400MG/30ML ORAL SUSPENSION 30 ML CUP PO PRN (15:26)
[2024-12-14] MEDS: LIDOCAINE PATCH REMOVAL MC SCH (21:02)
[2024-12-17 06:35] VITALS: BP 105/68; PULSE 75; TEMP 97.4
== END 2024-12-17 09:14 | disposition home or self-care (01) | DRG 772 ==
LOC: YASAS 11:08 → Y3E 13:59
PROVIDERS: ADMIT Psychiatry & Neurology Pain Medicine; ATTEND Psychiatry & Neurology Pain Medicine
PROC: HZ42ZZZ Group Counseling for Substance Abuse Treatment, Cognitive-Behavioral (ICD-10-PCS; principal; 2024-11-20)
DX: F11.20 Opioid dependence, uncomplicated (principal); F10.20 Alcohol dependence, uncomplicated; F14.20 Cocaine dependence, uncomplicated; F12.20 Cannabis dependence, uncomplicated; F17.210 Nicotine dependence, cigarettes, uncomplicated; F25.9 Schizoaffective disorder, unspecified; F19.282 Other psychoactive substance dependence with psychoactive substance-induced sleep disorder; F19.24 Other psychoactive substance dependence with psychoactive substance-induced mood disorder; F39 Unspecified mood [affective] disorder; J45.909 Unspecified asthma, uncomplicated; K21.9 Gastro-esophageal reflux disease without esophagitis; R76.8 Other specified abnormal immunological findings in serum; M25.561 Pain in right knee; M25.562 Pain in left knee; Z99.89 Dependence on other enabling machines and devices
CPT/HCPCS: 36415; 71046-TC-FY; 80053; 80305; 80307; 81003; 85027; 86593; 86780; 86803; 87389; 87522; 87811; 93005; 93010; J0475